=== PATIENT | female | born 1945 ===

== ENCOUNTER → 2017-01-07 | Outpatient (REF) | payer MEDICARE ==
[2017-01-07 12:19] LABS: ANION GAP 17.8 MEQ/L (3-15)
== END ==
LOC: LAB 10:15
PROVIDERS: ATTEND Family Medicine
DX: I10 Essential (primary) hypertension (principal)
CPT/HCPCS: 80048

== ENCOUNTER → 2017-01-21 | Outpatient (REF) | payer MEDICARE ==
[2017-01-21 13:23] LABS: ALBUMIN 4.2 g/dL (3.4-5.0); CALCULATED IONIZED CALCIUM 4.1 mg/dL (3.8-4.6); TOTAL PROTEIN 7.4 g/dL (6.4-8.5)
== END ==
LOC: LAB 11:00
PROVIDERS: ATTEND Family Medicine
DX: E87.1 Hypo-osmolality and hyponatremia (principal); E83.51 Hypocalcemia
CPT/HCPCS: 80053